=== PATIENT | male | born 1970 | race Caucasian/White ===

== ENCOUNTER 2017-01-31 07:45 | Day surgery (SDC) | payer BC, OTHER ==
--- NOTE | ~2017-01-31 | EGD ---
EGD REPORT [facility] [address] [id number] NAME: TARAN JIM : 74 STATUS : REG [facility]#: [id number] AGE: 46 ADM/REG DATE : 01/31/17 MR#: [id number] REPORT SERV DATE: 01/31/17 DICTATED BY: RAYA TURNER DATE: 01/31/17 REPORT STATUS : Draft [facility]ANS[facility]IBED BY: [email or web address] DATE: 01/31/17 End[facility] Center Patient Name: Taran Jim Date of : 1970 Attending MD: RAYA TURNER MD Procedure Date No Time: 01/31/2017 Procedure: Upper GI endoscopy Indications: Dysphagia Referring MD: ELISABETH JOHNSON MD Medicines: Sedation Required Anesthesia Staff Assistance Complications: No immediate complications. Estimated blood loss: None. Procedure: Pre-Anesthesia Assessment: - ASA Grade Assessment: III - A patient with severe systemic disease. After obtaining informed consent, the endoscope was passed under direct vision. Throughout the procedure, the patient's blood pressure, pulse, and oxygen saturations were monitored continuously. The GIF [id number] was introduced through the mouth, and advanced to the third part of duodenum. The upper GI endoscopy was accomplished without difficulty. The patient tolerated the procedure well. Findings: A benign-appearing, intrinsic mild stenosis was found at the gastroesophageal junction and was traversed. A guidewire was placed and the scope was withdrawn. Dilation was performed with a Savary dilator with mild resistance at 51 Fr, mild resistance at 54 Fr and mild resistance at 57 Fr. Estimated blood loss: none. A small hiatus hernia was present. The examined duodenum was normal. Impression: - Benign-appearing esophageal stricture. Dilated. - Hiatus hernia. - Normal examined duodenum. Recommendation: - Patient has a contact number available for emergencies. The signs and symptoms of potential delayed complications were discussed with the patient. Return to normal activities tomorrow. Written discharge instructions were provided to the patient. - Soft diet today. - Patient has a contact number available for emergencies. The signs and symptoms of potential delayed complications were discussed with the patient. Return to EGD REPORT [address] [address] NAME: TARAN JIM : [birth year] STATUS : REG [facility] [place] PAT#: [id number] AGE: 46 ADM/REG DATE : 01/31/17 MR#: [id number] REPORT SERV DATE: 01/31/17 DICTATED BY: RAYA TURNER. DATE: 01/31/17 REPORT STATUS : Draft TRANSCRIBED BY: [employer] DATE: 01/31/17 normal activities tomorrow. Written discharge instructions were provided to the patient. - Continue present medications. - Discharge patient to home. Procedure Code(s): --- Professional --- 90225, Esophagogastroduodenoscopy, flexible, transoral; with insertion of guide wire followed by passage of dilator(s) through esophagus over guide wire Diagnosis Code(s): --- Professional --- K22.2, Esophageal obstruction K44.9, Diaphragmatic hernia without obstruction or gangrene R13.10, Dysphagia, unspecified CPT copyright 2013 [employer]. All rights reserved. The codes documented in this report are preliminary and upon director targeted marketing review may be revised to meet current compliance requirements. RAYA TURNER MD 01/31/2017 9:39 AM This report has been signed electronically. Number of Addenda: 0 Note Initiated On: 01/31/2017 9:14 AM Scope Withdrawal Time 0 hours 0 minutes 0 seconds [address] [id number]
[~2017-01-31 07:45] MED LIST: CIMZIA SC; DURA12 TOP; KLONO2 PO; LOP50; MTX50; MULTIVIT/MIN PO; NORCO1 TA1; P10 PO; P5 PO; PAXIL30 MG PO; PLAQ200B PO; PRILOSEC40 MG PO; PROZAC PO; PROZAC40 MG PO; TRIAMCINOLON0.5 % EX; ULTRAM50 PO; ZYRTEC ALLGY10 MG PO
== END 2017-01-31 23:59 | disposition home or self-care (01) ==
LOC: DMU 07:45
PROVIDERS: Internal Medicine Gastroenterology
PROC: 0D747ZZ Dilation of Esophagogastric Junction, Via Natural or Artificial Opening (ICD-10-PCS; principal; 2017-01-31 10:00)
DX: K22.2 Esophageal obstruction (principal); K44.9 Diaphragmatic hernia without obstruction or gangrene; R13.10 Dysphagia, unspecified; I10 Essential (primary) hypertension; G43.909 Migraine, unspecified, not intractable, without status migrainosus; G47.33 Obstructive sleep apnea (adult) (pediatric); J45.909 Unspecified asthma, uncomplicated; L40.50 Arthropathic psoriasis, unspecified; E66.9 Obesity, unspecified; Z79.899 Other long term (current) drug therapy; Z79.52 Long term (current) use of systemic steroids; Z79.891 Long term (current) use of opiate analgesic